=== PATIENT | female | born 1965 | race Caucasian/White ===

== ENCOUNTER 2024-01-10 11:27 | Emergency (ER) | payer BC, MEDICAID ==
[~2024-01-10] VITALS: Ht 170.2 cm; Wt 124.0 kg
[2024-01-10] MEDS: HYDROcodone-ACET 10/325MG TAB PO ONE (13:17)
[2024-01-10] MEDS: cloNIDine HCL 0.1 MG TAB PO ONE (13:31)
[2024-01-10 14:34] VITALS: BP 145/76; PULSE 100; RESP 16; TEMP 98; O2SAT 97
[2024-01-10] MEDS ORDERED: TRAM-626 PO (14:37)
[2024-01-10] MEDS ORDERED: AML5T PO (14:37)
[2024-01-10] MEDS ORDERED: MET50T PO (14:37)
== END 2024-01-10 15:01 | disposition home or self-care (01) ==
LOC: ER 11:27
DX: S50.11XA Contusion of right forearm, initial encounter (principal); S39.012A Strain of muscle, fascia and tendon of lower back, initial encounter; I10 Essential (primary) hypertension; Z79.899 Other long term (current) drug therapy; Z88.8 Allergy status to other drugs, medicaments and biological substances; Z90.49 Acquired absence of other specified parts of digestive tract; Z98.890 Other specified postprocedural states; W01.0XXA Fall on same level from slipping, tripping and stumbling without subsequent striking against object, initial encounter; Y93.89 Activity, other specified; Y92.89 Other specified places as the place of occurrence of the external cause; Y99.8 Other external cause status
CPT/HCPCS: 29105; 72100; 73090